=== PATIENT | male | born 1990 | race Two or more races ===

== ENCOUNTER 2019-03-04 11:04 | Emergency (ER) | payer OTHER ==
[~2019-03-04] VITALS: Ht 182.9 cm; Wt 82.9 kg
[~2019-03-04 11:04] MED LIST: CYCL10TA7 PO; NAPR-985 PO
[2019-03-04 11:10] VITALS: BP 135/66; PULSE 95; RESP 18; Ht 182.9 cm; Wt 82.9 kg
[2019-03-04] MEDS ORDERED: KETOROLAC 30 MG INJ IM STA (12:42)
[2019-03-04] MEDS ORDERED: DEXAMETHASONE 10 MG/ML 1 ML INJ IM ONE (13:00)
== END 2019-03-04 13:07 | disposition home or self-care (01) ==
LOC: FTE 11:04
DX: M54.5 Low back pain (principal)
CPT/HCPCS: 96372; J1100; J1885; Z7502